=== PATIENT | female | born 1975 | race Caucasian/White ===

== ENCOUNTER 2025-10-11 08:21 | Day surgery (SDC) | payer BC, SELFPAY ==
[2025-10-11] VITALS (12 sets, daily range): BP systolic 119–146; BP diastolic 64–95; PULSE 54–77; RESP 16–20; TEMP 36.6–36.8; O2SAT 95–100; BMI 38.1
[2025-10-11] MEDS: SODIUM CHLORIDE 0.9 % (FLUSH) 10 ML SYRINGE IVF (09:10)
[2025-10-11] MEDS: LACTATED RINGERS 1000 ML 1,000 ML 100 ML IV ×2 (09:10→11:44)
--- NOTE | 2025-10-11 09:16 | P.GSOP_ITS ---
Operative Note Date of procedure: 10/11/25 Pre-op diagnosis: 1. Recurrent umbilical hernia. Post-op diagnosis: 1. Recurrent supraumbilical hernia. Type of Procedure: 1. Open supraumbilical hernia repair with mesh. Indications: 50-year-old female was seen in clinic for evaluation of umbilical hernia. Patient had an umbilical hernia repair as an infant. She also had a hysterectomy with one of her ports being at the umbilicus. Patient noticed a bulge to the left of her umbilicus about 6 months prior to her presentation. She did not notice the size of the bulge but the bulge is always present. She denied pain at the bulge. 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 On clinical exam patient had a well-healed supraumbilical scar from her hernia repair and hysterectomy. Patient had an ill-defined bulge to the left and superior to the umbilicus. The bulge was prominent with Valsalva and was not reducible. I was not able to palpate the fascial edges. Given patient's clinical history and her physical exam, an open umbilical hernia repair with recommended. The procedure was discussed in detail. The risks associated procedure including infection, bleeding, injury to preperitoneal and intra- abdominal organs, and hernia recurrence were all discussed with the patient, and she agreed to proceed. Procedure Description: After discussing the risks and benefits of the procedure, the patient signed informed consent.? The operative site was marked and the patient was brought to the operating room and placed on the operating table in supine position.? Care was taken to pad the patient's pressure points.?? The patient was then intubated by anesthesia.?? The operative site was then prepped and draped in the usual sterile fashion.? A time-out was then performed. Local anesthetic was injected at the surgical site. A horizontal surgical skin incision was made with a scalpel just above umbilicus through patient's well- healed surgical scar. Subcutaneous tissue was dissected with electrocautery down to the hernia sac and anterior fascia. Moderate amount of scar tissue was noted. Was divided with cautery. The fascial edges of hernia were identified and the hernia sac was from the fascia carefully with cautery. The anterior fascia was then grasped and the hernia sac was mobilized off the anterior fascia with cautery. Scar was noted in the preperitoneal space directly underneath the umbilicus. There was no umbilical fascial defect noted. This fascial defect was supraumbilical and is most likely incisional from patient's previous hysterectomy. The subcutaneous fat around the fascial defect was dissected away from the fascial defect with cautery. Hernia sac was entered during this dissection and contained thickened peritoneum but no intra-abdominal structures were incarcerated through the hernia sac. Peritoneum was palpated intra-abdominally around the hernia sac and no intra-abdominal scar tissue was palpated. Peritoneum was closed with a running 2-0 Vicryl suture. The anterior fascial defect was [address] mesh patch was then inserted into preperitoneal space and secured to the fascia using 0-0 Neurolon interrupted stitches. I examined my closure and no defects were identified between the fascia and the mesh. Fascia was re-approximated over the mesh with a running 2-0 Vicryl stitch. Additional local anesthetic was injected into subcutaneous tis sues. Subcutaneous fat was then reapproximated with interrupted 2-0 and 3-0 Vicryl sutures. The dermis was closed with interrupted 3-0 Vicryl sutures. Skin was closed with 4-0 Monocryl using subcuticular stitch. Steri strips were applied over the incision. I then placed a folded sterile 4x4 gauze over the incision and covered it with tape. All counts were correct at the end of the case. Patient tolerated the procedure well and was transferred to PACU without any complications. Findings: 3 cm fascial defect with subcutaneous scar. Implants: Ventralex ST 8 cm mesh. Surgeon: Majo Kearney MD Estimated blood loss (mL): 5 Condition: stable Disposition: PACU
--- NOTE | 2025-10-11 09:16 | W.PM.H&PU ---
History & Physical Update History & Physical Update H&P Reviewed and patient assessed: No changes noted
--- NOTE | 2025-10-11 09:47 | SUR.OPER ---
PATIENT QUESTIONS ANSWERED SATISFACTORILY PREOPERATIVELY. PATIENT BROUGHT TO OR #1 PER CART. Patient positioned supine on OR #1 bed. The perioperative team supported arms bilaterally on arm boards. Final approval of positioning by surgeon.
--- NOTE | 2025-10-11 11:03 | P.ANES_ITS ---
Anesthesia Charges Start Date/Time Anesthesia Start Date: 10/11/25 Anesthesia Start Time: 09:24 Stop Date/Time Anesthesia Stop Date: 10/11/25 Anesthesia Stop Time: 11:03 Coding CPT Codes CPT Codes: ANESTH REPAIR OF HERNIA - 18346 ([id number]) P3 - PATIENT W/SEVERE SYS DISEASE, QK - ROOFING LAYER 2-4 CNCRNT ANES PROC, QX - COMMANDING OFFICER TRAFFIC DIVISION SVC W/ MD MED DIRECTION
--- NOTE | 2025-10-11 11:03 | W.ANESCHARGE ---
Anesthesia Charges Start Date/Time Anesthesia Start Date: 10/11/25 Anesthesia Start Time: 09:24 Stop Date/Time Anesthesia Stop Date: 10/11/25 Anesthesia Stop Time: 11:03 Coding CPT Codes CPT Codes: ANESTH REPAIR OF HERNIA - 00494 ([id number]) P3 - PATIENT W/SEVERE SYS DISEASE, QK - METER REPAIRER 2-4 CNCRNT ANES PROC, QX - SHOE FOLDER SVC W/ MD MED DIRECTION
--- NOTE | 2025-10-11 11:13 | P.ANES_ITS ---
Anesthesia Charges Start Date/Time Anesthesia Start Date: 10/11/25 Anesthesia Start Time: 09:24 Stop Date/Time Anesthesia Stop Date: 10/11/25 Anesthesia Stop Time: 11:03 Coding CPT Codes CPT Codes: ANESTH REPAIR OF HERNIA - 46476 ([id number]) QK - POWDER MILL OPERATOR 2-4 CNCRNT ANES PROC, QX - SHOWER MAID SVC W/ MD MED DIRECTION, P3 - PATIENT W/SEVERE SYS DISEASE
--- NOTE | 2025-10-11 11:13 | W.ANESCHARGE ---
Anesthesia Charges Start Date/Time Anesthesia Start Date: 10/11/25 Anesthesia Start Time: 09:24 Stop Date/Time Anesthesia Stop Date: 10/11/25 Anesthesia Stop Time: 11:03 Coding CPT Codes CPT Codes: ANESTH REPAIR OF HERNIA - 12694 ([id number]) QK - NUT THREADER 2-4 CNCRNT ANES PROC, QX - MANAGER VISUAL SVC W/ MD MED DIRECTION, P3 - PATIENT W/SEVERE SYS DISEASE
[2025-10-11] MEDS: HYDROCODONE-ACETAMIN 5-325 MG 1 TAB PO (11:50)
== END 2025-10-11 13:14 | disposition home or self-care (01) ==
PROVIDERS: PCP Physician Assistant; Visit Provider Surgery
PROC: (CPT 49593; principal; 2025-10-11 09:45)
DX: K42.9 Umbilical hernia without obstruction or gangrene (principal)
CPT/HCPCS: 49593; 00830; A9270; C1781; J0690; J1100; J1630; J2405; J2704; J2710; J3010; J3490; J7120